=== PATIENT | male | born 1990 | race Caucasian/White ===

== ENCOUNTER 2024-10-13 21:02 | Emergency (ER) | payer OTHER ==
[~2024-10-13] VITALS: Ht 167.6 cm; Wt 77.0 kg
[2024-10-13 21:06] VITALS: BP 123/77; PULSE 95; RESP 16; TEMP 36.8; O2SAT 100
[2024-10-13] MEDS: HYDROCODONE/ACETAMINOPHEN 5/325MG TABLET PO ONE (22:51)
[2024-10-13] MEDS: TETANUS, DIPHTHERIA, PERTUSSIS VAC/PF 0.5ML (>10YR OLD) IM ONE (22:53)
[2024-10-13] MEDS ORDERED: IBUP-2029 MT (23:43)
[2024-10-13] MEDS ORDERED: AMOX1TAB16 MT (23:43)
[2024-10-13] MEDS ORDERED: HYDR-4001 MT (23:43)
[2024-10-13] MEDS ORDERED: BO1 TP (23:43)
== END 2024-10-14 00:15 | disposition home or self-care (01) ==
LOC: ER 21:02
DX: S02.40DA Maxillary fracture, left side, initial encounter for closed fracture (principal); S82.892A Other fracture of left lower leg, initial encounter for closed fracture; S09.90XA Unspecified injury of head, initial encounter; G93.0 Cerebral cysts; Y08.89XA Assault by other specified means, initial encounter; Y93.89 Activity, other specified; Y92.89 Other specified places as the place of occurrence of the external cause; Y99.8 Other external cause status
CPT/HCPCS: 29515; 70486; 73610; 73630; 90471; 90715; 99285